=== PATIENT | male | born 1995 | race Caucasian/White ===

== ENCOUNTER → 2023-12-26 | Emergency (ER) | payer OTHER ==
[~2023-12-26] MED LIST: ACETAMINOPHEN 500 MG TAB ONE; CYCLOBENZAPRINE 10 MG TAB ONE; KETOROLAC 30 MG/ML INJ ONE
--- NOTE | 2023-12-27 00:42 | EDPHYS ---
Physician Documentation [facility] Name: Omar Martin Age: 28 yrs Sex: Male : 1995 Arrival Date: 12/26/2023 Time: 23:22 Bed 5 Private MD: ED Physician Alexander Peres HPI: 12/25 23:36 This 28 yrs old Male presents to ER via Unassigned with complaints of Knee sp4 Injury. 12/26 00:37 28 -year-old male who is incarcerated, presents with left knee injury . sp4 07:04 Patient is incarcerated male brought in with senior care escort for acute knee injury to the sp4 left knee left elbow. Patient states he fell causing injury to the left knee and left elbow. Persistent pain left knee left knee swelling pain with weightbearing to the left knee. Historical: - Allergies: 12/25 23:30 No Known Allergies; jw7 - Home Meds: 23:30 None [Active]; jw7 - PMHx: 23:30 None; jw7 - PSHx: 23:30 Left Elbow; jw7 - Immunization history:: Adult Immunizations up to date, Client reports receiving the 2nd dose of the Covid vaccine, Flu vaccine is not up to date. - Social history:: Smoking status: Patient denies any tobacco usage or history of. Patient/guardian denies using alcohol, street drugs, IV drugs. - Family history:: not pertinent. ROS: 12/26 07:04 Constitutional: Negative for fever, chills, and weight loss, positive for left knee sp4 injury positive left elbow injury All other systems are negative, Exam: 07:04 Constitutional: This is a well developed, well nourished patient who is awake, alert, sp4 and in no acute distress. Head/Face: Normocephalic, atraumatic. Eyes: Pupils equal round and reactive to light, extra-ocular motions intact. Lids and lashes normal. Conjunctiva and sclera are not injected. Cornea within normal limits. Periorbital areas with no swelling, redness, or edema. ENT: Nares patent. No nasal discharge, no septal abnormalities noted. Tympanic membranes are normal and external auditory canals are clear. Oropharynx with no redness, swelling, or masses, exudates, or evidence of obstruction, uvula midline. Mucous membranes moist. Neck: Trachea midline, no thyromegaly or masses palpated, and no cervical lymphadenopathy. Supple, full range of motion without nuchal rigidity, or vertebral point tenderness. Chest/axilla: Normal chest wall appearance and motion. Nontender with no deformity. No lesions are appreciated. Cardiovascular: Regular rate and rhythm with a normal S1 and S2. No gallops, murmurs, or rubs. Normal PMI, no JVD. No pulse deficits. Respiratory: Lungs have equal breath sounds bilaterally, clear to auscultation and percussion. No rales, rhonchi or wheezes noted. No increased work of breathing, no retractions or nasal flaring. Abdomen/GI: Soft, with normal bowel sounds. No distension or tympany. No guarding or rebound. No evidence of tenderness throughout. Back: No spinal tenderness. No costovertebral tenderness. Skin: Warm, dry with normal turgor. Normal color with no rashes, no lesions, and no evidence of cellulitis. MS/ Extremity: Pulses equal, no cyanosis. Neurovascular intact. Full, normal range of motion. Positive left knee swelling left knee effusion, no deformity Neuro: Awake and alert, GCS 15, oriented to person, place, time, and situation. Cranial nerves II-XII grossly intact. Motor strength 5/5 in all extremities. Sensory grossly intact. Psych: Awake, alert, with orientation to person, place and time. Behavior, mood, and affect are within normal limits Vital Signs: 12/25 23:30 BP 127 / 77; Pulse 78; Resp 18 S; Temp 98(O); Pulse Ox 100% on R/A; Weight 95.25 kg; jw7 Height 6 ft. 1 in. ; Pain 04/30; 12/26 00:30 BP 130 / 90; Pulse 73; Resp 17 S; Pulse Ox 96% on R/A; jw7 01:10 BP 143 / 74; Pulse 74; Resp 16 S; Pulse Ox 99% on R/A; jw7 12/25 23:30 Body Mass Index 27.71 (95.25 kg, 185.42 cm) jw7 12/25 23:30 Pain Scale: Adult jw7 MDM: 12/25 23:33 Patient medically screened. kb 12/26 00:32 ED course: EXAM: Elbow Left 3 View CLINICAL INDICATION: 28-year-old male with left sp4 elbow pain. TECHNIQUE: Three views of the LEFT elbow were obtained inAP, lateral and oblique projections. COMPARISON: None. FINDINGS: There is no clear fracture or dislocation. However, a nonspecific focus of calcification or ossification is identified, only noted on the AP view raising the concern for fracture fragment of uncertain donor site. Additionally, there appears to be irregularity of the olecranon for which further evaluation with CT of the elbow may be considered. The joint spaces are preserved. No soft tissue abnormalities are seen. IMPRESSION: No clear fracture or dislocation. However, a nonspecific focus of calcification or ossification is identified, only noted on the AP view raising the concern for fracture fragment of uncertain donor site. Additionally, there appears to be irregularity of the olecranon for which further evaluation with CT of the elbow may be considered. . ED course: EXAM DESCRIPTION: Knee Left 3 View RadLex: XR KNEE 3 VIEWS LEFT CLINICAL HISTORY: 28 years Male, left knee injury COMPARISON: None. FINDINGS: 4 views of the left knee. Normal osseous mineralization fracture or dislocation. There is a large joint effusion. Joint spaces appear grossly intact. Soft tissues are otherwise unremarkable. IMPRESSION: Large joint effusion without acute fracture identified. . ED course: EXAM: Femur Left CLINICAL INDICATION: 28-year-old male with left flank injury. COMPARISON: None. TECHNIQUE: 4 views left femur. FINDINGS: There is no fracture or dislocation. The joint spaces are preserved. No soft tissue abnormalities are seen. IMPRESSION: No acute radiographic abnormality. Electronically signed by: Nupur Polanco MD 12/27/2023 12:20 AM . 07:04 Differential Diagnosis Contusion, fracture, effusion, tendinitis, tendon injury, sp4 ligamentous tear. Data reviewed: vital signs, nurses notes, EMS record, radiologic studies, plain films. ED course: Stable for discharge home with knee immobilizer for the next 4 weeks. With a referral to orthopedist Dr. Pop for follow-up in 2 weeks. 12/25 23:34 Order name: Knee Left 3 View XRAY sp4 12/25 23:36 Order name: Femur Left XRAY sp4 12/25 23:36 Order name: Elbow Left 3 View XRAY sp4 12/26 00:34 Order name: Knee Immobilizer; Complete Time: 01:14 sp4 12/26 00:34 Order name: Crutches; Complete Time: 01:14 sp4 Administered Medications: 12/25 23:54 Drug: Ketorolac IM 60 mg IM once Route: IM; Site: left deltoid; jw7 12/26 01:24 Follow up: Response: No adverse reaction; Marked relief of symptoms; Pain is decreased jw7 12/25 23:54 Drug: Acetaminophen PO 1000 mg PO once Route: PO; jw7 12/26 01:24 Follow up: Response: No adverse reaction; Marked relief of symptoms; Pain is decreased 7 12/25 23:54 Drug: Cyclobenzaprine PO 10 mg PO once Route: PO; jw7 12/26 01:24 Follow up: Response: No adverse reaction; Marked relief of symptoms jw7 Disposition Summary: 12/27/23 00:41 Discharge Ordered Problem: new sp4 Symptoms: have improved sp4 Condition: Stable sp4 Diagnosis - Effusion, left knee sp4 - Left knee sprain , left knee effusion , acute left knee injury, left elbow contusionsp4 Followup: sp4 - With: Brennan Pop MD - When: 10 - 14 days - Reason: Recheck today's complaints Discharge Instructions: - Discharge Summary Sheet sp4 - Knee Effusion, [id number] sp4 Forms: - Patient Portal Instructions sp4 Prescriptions: - Ibuprofen 800 mg Oral Tablet - take 1 tablet ORAL route every 8 hours As needed take with food; 30 tablet; sp4 Refills: 0, Product Selection Permitted Signatures: Dispatcher [employer] Carin Gonzalez FNP-C FNP-Ckb Waits, Jodi, RN RN jw7 Alexander Peres MD MD sp4
--- NOTE | 2023-12-27 01:26 | ER ---
Nurse's Notes [facility] Name: Omar Martin Age: 28 yrs Sex: Male : 1995 Arrival Date: 12/26/2023 Time: 23:22 Bed 5 Private MD: Diagnosis: Effusion, left knee;Left knee sprain , left knee effusion , acute left knee injury, left elbow contusion Presentation: 12/25 23:30 Chief complaint: Patient states: Left knee and elbow pain that started today from a jw7 fall. Coronavirus screen: At this time, the client does not indicate any symptoms associated with coronavirus-19. Ebola Screen: No symptoms or risks identified at this time. Initial Sepsis Screen: Does the patient meet any 2 criteria? No. Patient's initial sepsis screen is negative. Does the patient have a suspected source of infection? No. Patient's initial sepsis screen is negative. Risk Assessment: Do you want to hurt yourself or someone else? Patient reports no desire to harm self or others. Onset of symptoms was December 27, 2023. 23:30 Method Of Arrival: EMS: [place] [id number] 23:30 Acuity: KATARZYNA 4 jw7 Triage Assessment: 23:30 General: Appears in no apparent distress. uncomfortable, Behavior is calm, cooperative. jw7 Pain: Complains of pain in Left knee and left elbow Pain does not radiate. Pain currently is 7 out of 10 on a pain scale. Quality of pain is described as sharp, shooting, Pain began suddenly, Is continuous, Alleviated by medications. EENT: No deficits noted. No signs and/or symptoms were reported regarding the EENT system. Neuro: Somers Agitation-Sedation Scale (RASS): 0 - Alert and Calm Level of Consciousness is awake, alert, obeys commands, Oriented to person, place, time, situation. Cardiovascular: Heart tones S1 S2 present Capillary refill < 3 seconds Clubbing of nail beds is absent JVD is absent Patient's skin is warm and dry. Respiratory: Airway is patent Trachea midline Respiratory effort is even, unlabored, Respiratory pattern is regular, symmetrical, Breath sounds are clear bilaterally. GI: Abdomen is flat, non-distended, Bowel sounds present X 4 quads. Abd is soft and non tender X 4 quads. : No deficits noted. No signs and/or symptoms were reported regarding the genitourinary system. Derm: Skin is intact, is healthy with good turgor, Skin is dry, Skin is normal, Skin temperature is warm. Musculoskeletal: Circulation, motion, and sensation intact. Range of motion: limited in left elbow and left knee. Injury Description: Fell from standing on left side. Historical: - Allergies: 23:30 No Known Allergies; jw7 - Home Meds: 23:30 None [Active]; jw7 - PMHx: 23:30 None; jw7 - PSHx: 23:30 Left Elbow; jw7 - Immunization history:: Adult Immunizations up to date, Client reports receiving the 2nd dose of the Covid vaccine, Flu vaccine is not up to date. - Social history:: Smoking status: Patient denies any tobacco usage or history of. Patient/guardian denies using alcohol, street drugs, IV drugs. - Family history:: not pertinent. Screenin:30 [facility] ED Fall Risk Assessment (Adult) History of falling in the last 3 months, jw7 including since admission Yes- single mechanical fall (1 pt) Confusion or Disorientation No (0 pts) Intoxicated or Sedated No (0 pts) Impaired Gait Yes (1 pt) Mobility Assist Device Used No (0 pt) Altered Elimination No (0 pt) Score/Fall Risk Level 0 - 2 = Low Risk Oriented to surroundings, Maintained a safe environment, Educated pt \T\ family on fall prevention, incl call for assistance when getting out of bed. Abuse screen: Denies threats or abuse. Denies injuries from another. Nutritional screening: No deficits noted. Tuberculosis screening: No symptoms or risk factors identified. Assessment: 23:30 General: See Triage Assessment. jw7 12/26 00:30 Reassessment: Patient appears in no apparent distress at this time. No changes from 7 previously documented assessment. Patient and/or family updated on plan of care and expected duration. Pain level reassessed. Patient is alert, oriented x 3, equal unlabored respirations, skin warm/dry/pink. 01:22 Reassessment: Patient appears in no apparent distress at this time. Patient and/or jw7 family updated on plan of care and expected duration. Pain level reassessed. Patient is alert, oriented x 3, equal unlabored respirations, skin warm/dry/pink. Patient states feeling better. Patient states symptoms have improved. Vital Signs: 12/25 23:30 BP 127 / 77; Pulse 78; Resp 18 S; Temp 98(O); Pulse Ox 100% on R/A; Weight 95.25 kg; jw7 Height 6 ft. 1 in. ; Pain 04/30; 12/26 00:30 BP 130 / 90; Pulse 73; Resp 17 S; Pulse Ox 96% on R/A; jw7 01:10 BP 143 / 74; Pulse 74; Resp 16 S; Pulse Ox 99% on R/A; jw7 12/25 23:30 Body Mass Index 27.71 (95.25 kg, 185.42 cm) jw7 12/25 23:30 Pain Scale: Adult jw7 ED Course: 12/25 23:30 Arm band placed on. jw7 23:30 Patient has correct armband on for positive identification. Placed in gown. Bed in low jw7 position. Call light in reach. Side rails up X2. Client placed on continuous cardiac and pulse oximetry monitoring. NIBP monitoring applied. Warm blanket given. Pillow given. 23:32 Patient arrived in ED. wm 23:34 Alexander Peres MD is Attending Physician. sp4 12/26 00:02 Knee Left 3 View XRAY In Process Unspecified. EDMS 00:02 Femur Left XRAY In Process Unspecified. EDMS 00:02 Elbow Left 3 View XRAY In Process Unspecified. EDMS 00:41 Brennan Pop MD is Referral Physician. sp4 01:10 Crutch training done. Knee immobilizer applied on left knee. jw7 01:17 Triage completed. jw7 01:23 No provider procedures requiring assistance completed. Patient did not have IV access jw7 during this emergency room visit. 01:24 Provided Education on: Use of crutches and knee immobilizer. jw7 Administered Medications: 12/25 23:54 Drug: Ketorolac IM 60 mg IM once Route: IM; Site: left deltoid; jw7 12/26 01:24 Follow up: Response: No adverse reaction; Marked relief of symptoms; Pain is decreased jw7 12/25 23:54 Drug: Acetaminophen PO 1000 mg PO once Route: PO; jw7 12/26 01:24 Follow up: Response: No adverse reaction; Marked relief of symptoms; Pain is decreased jw7 03/06 23:54 Drug: Cyclobenzaprine PO 10 mg PO once Route: PO; jw7 12/26 01:24 Follow up: Response: No adverse reaction; Marked relief of symptoms jw7 Medication: 01:24 VIS not applicable for this client. jw7 Outcome: 00:41 Discharge ordered by . sp4 01:23 Discharged to Law Enforcement jw7 01:23 Condition: stable 01:23 Discharge instructions given to patient, Instructed on discharge instructions, follow up and referral plans. medication usage, Demonstrated understanding of instructions, follow-up care, medications, Prescriptions given X 1, 01:25 Patient left the ED. jw7 Signatures: Dispatcher [employer] EDMS Nita Hernandez Jodi, RN RN jw7 Alexander Peres MD MD sp4
[2023-12-27 01:50] VITALS: BP 143/74; TEMP 98; O2SAT 99
--- NOTE | 2023-12-27 11:54 | RAD REPORT ---
EXAM DESCRIPTION: RAD - Knee Left 3 View - 12/27/2023 12:00 am CLINICAL HISTORY: 28 years Male, left knee injury COMPARISON: None. FINDINGS: 4 views of the left knee. Normal osseous mineralization fracture or dislocation. There is a large joint effusion. Joint spaces appear grossly intact. Soft tissues are otherwise unremarkable. IMPRESSION: Large joint effusion without acute fracture identified. Electronically signed by: Hilda Malik MD 12/27/2023 12:21 AM SUPERVISOR [employer] Due to temporary technical issues with the PACS/Fluency reporting system, reports are being signed by the in house radiologists without review as a courtesy to insure prompt reporting. The interpreting radiologist is fully responsible for the content of the report.
--- NOTE | 2023-12-27 11:55 | RAD REPORT ---
EXAM DESCRIPTION: RAD - Elbow Left 3 View - 12/27/2023 12:00 am CLINICAL HISTORY: 28-year-old male with left elbow pain. TECHNIQUE: Three views of the LEFT elbow were obtained in AP, lateral and oblique projections. COMPARISON: None. FINDINGS: There is no clear fracture or dislocation. However, a nonspecific focus of calcification o r ossification is identified, only noted on the AP view raising the concern for fracture fragment of uncertain donor site. Additionally, there appears to be irregularity of the olecranon for which furth er evaluation with CT of the elbow may be considered. The joint spaces are preserved. No soft tissue abnormalities are seen. IMPRESSION: No clear fracture or dislocation. However, a nonspecific focus of calcification or ossif ication is identified, only noted on the AP view raising the concern for fracture fragment of uncerta in donor site. Additionally, there appears to be irregularity of the olecranon for which further eval uation with CT of the elbow may be considered. Electronically signed by: Nupur Polanco MD 12/27/2023 12:21 AM UNIVERSITY EXTENSION SPECIALIST Due to temporary technical issues with the PACS/Fluency reporting system, reports are being signed by the in house radiologists without review as a courtesy to insure prompt reporting. The interpreting radiologist is fully responsible for the content of the report.
--- NOTE | 2023-12-27 12:48 | RAD REPORT ---
EXAM DESCRIPTION: RAD - Femur Left - 12/27/2023 12:00 am CLINICAL HISTORY: 28-year-old male with left flank injury. COMPARISON: None. TECHNIQUE: 4 views left femur. FINDINGS: There is no fracture or dislocation. The joint spaces are preserved. No soft tissue abnorm alities are seen. IMPRESSION: No acute radiographic abnormality. Electronically signed by: Nupur Polanco MD 12/27/2023 12:20 AM SENIOR MEDICAL TRANSCRIPTIONIST Due to temporary technical issues with the PACS/Fluency reporting system, reports are being signed by the in house radiologists without review as a courtesy to insure prompt reporting. The interpreting radiologist is fully responsible for the content of the report.
== END ==
LOC: ER 23:22
DX: S83.92XA Sprain of unspecified site of left knee, initial encounter (principal); M25.462 Effusion, left knee; S50.02XA Contusion of left elbow, initial encounter
CPT/HCPCS: 96372; 99284